=== PATIENT | female | born 1995 | race American Indian/Alaskan Native ===

== ENCOUNTER 2022-04-17 09:21 | Emergency (ER) | payer MEDICAID ==
[~2022-04-17] VITALS: Ht 165.1 cm; Wt 64.0 kg
[2022-04-17] MEDS ORDERED: BUPR174T PO (09:30)
[2022-04-17] MEDS ORDERED: IBUPROFEN 600MG TABLET PO STA (09:56)
[2022-04-17 10:21] VITALS: BP 127/74
[2022-04-17] MEDS ORDERED: BENZ200C52 MT (12:20)
== END 2022-04-17 12:39 | disposition home or self-care (01) ==
LOC: ER 09:21
DX: B34.9 Viral infection, unspecified (principal); R05.9 Cough, unspecified; Z20.822 Contact with and (suspected) exposure to COVID-19; Z98.890 Other specified postprocedural states; Z90.89 Acquired absence of other organs
CPT/HCPCS: 71045; 87070; 87430; 87804; 99283